=== PATIENT | female | born 1955 | race African-American/Black ===

== ENCOUNTER → 2017-10-10 | Outpatient (CLI) | payer BC, OTHER ==
[2017-10-10 09:35] LABS: CREATININE 0.9 mg/dL (0.6-1.0)
== END ==
LOC: CAT 09:03
PROVIDERS: Internal Medicine
DX: G45.9 Transient cerebral ischemic attack, unspecified (principal)

== ENCOUNTER 2018-09-11 13:30 | Emergency (ER) | payer BC, OTHER ==
[~2018-09-11] VITALS: Ht 172.7 cm; Wt 77.1 kg
--- NOTE | ~2018-09-11 | EKG ---
[facility] [place] [address] ELECTROCARDIOGRAM REPORT Name: JILL SPRING [id number] Admission: 09/11/18 Attend Phys: Discharge: 09/11/18 Date of : 59 Report #: [id number] THIS REPORT FOR: //name// [facility] ED Test Date: 2018-09-11 Test Time: 14:03:42 Pat Name: JILL SPRING Department: Room: Gender: F Health And Safety Coordinator: TIKA : 1955 Requested By: Joaquin Greene Order Number: [id number] MD: Husam Pepe Measurements Intervals [place] Rate: 86 P: 56 TN: 163 QRS: 31 QRSD: 88 T: 16 QT: 380 QTc: 455 Interpretive Statements Sinus rhythm Atrial premature complex Anteroseptal infarct, old Compared to ECG 02/12/2018 17:13:03 Atrial premature complex(es) now present septal Q waves are more prominent Electronically Signed On 09-12-2018 8:44:12 [employer] by Husam Pepe [email or web address] <ELECTRONICALLY SIGNED> By: Husam Pepe MD, [facility] 09/12/18 [id number] [id number] 140 Husam Pepe MD, [facility] /EPI
[~2018-09-11 13:30] MED LIST: FLUOXETINE HCL20 M1 PO; HYDROXYZINE PAM50 MG PO; PROTONIX40 M2 PO; ZOLPIDEM TARTRA10 MG PO
[2018-09-11 14:22] LABS: ABSOLUTE NEUTROPHILS 3.1 thou/uL (1.4-8.2); BASOPHILS 1.2 % (0.0-2.0); EOSINOPHILS 2.8 % (0.0-3.0); HEMATOCRIT 39.5 % (37.0-47.0); HEMOGLOBIN 13.7 gm/dL (12.0-15.0); LYMPHOCYTES 35.2 % (24.0-44.0); MCH 28.7 pg (26.0-34.0); MCHC 34.6 g/dL (28.0-37.0); MONOCYTES 9.3 % (1.0-8.0); PLATELET COUNT 208 thou/uL (150-400); POLYS 51.5 % (36.0-66.0); RBC 4.76 mil/uL (4.20-5.00); RDW 13.7 % (10.5-14.5)
[2018-09-11 14:29] LABS: ANION GAP 6 mmol/L (7-16); BUN 16 mg/dL (7-18); CALCIUM 9.3 mg/dL (8.5-10.1); CHLORIDE 103 mmol/L (98-107); CO2 29 mmol/L (21-32); CREATININE 0.9 mg/dL (0.6-1.0); GLUCOSE 84 mg/dL (74-106); POTASSIUM 3.7 mmol/L (3.5-5.1); SODIUM 138 mmol/L (136-145)
[2018-09-11 14:37] LABS: ALBUMIN 3.5 g/dL (3.4-5.0); SGOT 24 U/L (15-37); SGPT 28 U/L (30-65); TOTAL BILIRUBIN 0.6 mg/dL (<0.1-1.0); TOTAL PROTEIN 7.7 g/dL (6.4-8.2); TROPONIN-I <0.06 ng/mL (<0.06)
[2018-09-11 15:19] LABS: URINE BILIRUBIN NEGATIVE (Negative); URINE BLOOD TRACE (Negative); URINE CLARITY CLEAR; URINE COLOR YELLOW; URINE GLUCOSE-RANDOM* NEGATIVE (Negative); URINE KETONES NEGATIVE (Negative); URINE NITRITE-REFLEX NEGATIVE (Negative); URINE PROTEIN (DIPSTICK) NEGATIVE (Negative); URINE UROBILINOGEN 0.2 E.U./dl (0.2-1.0)
[2018-09-11 15:20] LABS: URINE LEUKOCYTES-REFLEX 2+ (Negative)
[2018-09-11] MEDS ORDERED: KEFLEX500 M1 PO (15:23)
[2018-09-11 15:28] VITALS: BP 122/77
[2018-09-11 15:31] LABS: CASTS None Seen /LPF (None Seen); CRYSTALS None Seen /LPF (None Seen); SQUAMOUS 0-3 Few /LPF (0-3); URINE WBC-REFLEX 6-15 Few /HPF (0-5)
[2018-09-11 15:34] LABS: BACTERIA-REFLEX 1-9 Few /HPF (None Seen); URINE RBC 0-2 Rare /HPF (0-2)
== END 2018-09-11 15:30 | disposition home or self-care (01) ==
LOC: ER 13:30
PROVIDERS: Physician Assistant
DX: G56.03 Carpal tunnel syndrome, bilateral upper limbs (principal); M79.605 Pain in left leg; R07.81 Pleurodynia; N39.0 Urinary tract infection, site not specified; R42 Dizziness and giddiness; R07.89 Other chest pain; M25.521 Pain in right elbow; Z87.891 Personal history of nicotine dependence; Z85.3 Personal history of malignant neoplasm of breast; Z90.10 Acquired absence of unspecified breast and nipple; W10.9XXA Fall (on) (from) unspecified stairs and steps, initial encounter; Y92.89 Other specified places as the place of occurrence of the external cause; Y93.89 Activity, other specified; Y99.8 Other external cause status